=== PATIENT | male | born 1960 | race Caucasian/White ===

== ENCOUNTER 2019-03-23 05:48 | Day surgery (SDC) | payer MEDICAID, OTHER ==
[2019-03-23] MEDS ORDERED: LIDOCAINE 1% 10 ML VIAL INJ ONE (07:00)
[2019-03-23] MEDS ORDERED: DEXAMETHASONE INJ 10 MG/ML VIAL ONE (07:00)
[2019-03-23] MEDS ORDERED: PROPOFOL 200 MG/20 ML VIAL IV ONE (07:00)
[2019-03-23] MEDS ORDERED: ONDANSETRON INJ 4 MG/2 ML VIAL ONE ×2 (07:00→10:34)
[2019-03-23] MEDS ORDERED: LACTATED RINGERS 1,000 ML ONE (07:01)
[2019-03-23 09:14] VITALS: TEMP 98.9; O2SAT 95
[2019-03-23] MEDS ORDERED: BUPIVACAINE 0.5% W/EPI 30 ML VIAL INJ ONE (10:17)
[2019-03-23] MEDS ORDERED: fentaNYL CITRATE INJ 50 MCG/ML AMP ONE (10:34)
[2019-03-23] MEDS ORDERED: SUGAMMADEX SODIUM 200 MG/2 ML VIAL IV ONE (10:35)
[2019-03-23] MEDS ORDERED: MIDAZOLAM INJ 2 MG/2 ML VIAL ONE (10:35)
[2019-03-23] MEDS ORDERED: ROCURONIUM BROMIDE 10 MG/ML VIAL ONE (10:36)
[2019-03-23] MEDS: HYDROmorphone HCL INJ 2 MG/ML VIAL ONE ×2 (11:51→11:56)
--- NOTE | 2019-03-23 12:00 | OP ---
DATE OF PROCEDURE: 03/23/19 PREOPERATIVE DIAGNOSIS: 1. Symptomatic cholelithiasis. 2. Possible liver disease. POSTOPERATIVE DIAGNOSIS: 1. Symptomatic cholelithiasis. 2. Possible liver disease. PROCEDURE: 1. Laparoscopic cholecystectomy with intraoperative cholangiogram. SURGEON: Rafael Banda MD. ANESTHESIA: General and local. FINDINGS: The gallbladder showed evidence of chronic cholecystitis and gallstones. Cholangiogram showed normal anatomy throughout without filling defect. The liver itself appeared only slightly fatty. There was no evidence of cirrhosis. No biopsy was performed, but a picture was taken for interest. COMPLICATIONS: None. ESTIMATED BLOOD LOSS: None. CONDITION: Stable. PLAN: Discharge. INDICATION: As stated. ANESTHESIA: General anesthesia. PROCEDURE: The patient was prepped and draped in sterile fashion. Marcaine 0.5% with epinephrine was used all incision sites while maintaining upward traction. A joão was made into the base of the umbilicus. Veress needle was introduced. There was free flow of fluid into the peritoneal cavity which was insufflated to an appropriate level with CO2 gas. The 5 mm trocar was placed followed by the camera. There was no evidence of bleeding or bowel injury. The patient was positioned and subxiphoid and lateral ports were placed under direct visualization. The gallbladder fundus was easily identified. It was grasped and retracted superiorly and laterally. The infundibulum was grasped. The infundibular structures were dissected free. The duct and artery were clearly visualized through the triangle of Calot. A clip was placed on the proximal duct and ductotomy performed. The cholangiocatheter was introduced. The cholangiogram revealed the above normal findings. The catheter was removed. Three clips were placed on the distal duct. The duct was ligated and the artery stripped and ligated. The gallbladder was then dissected off the fossa totally and removed in the EndoCatch bag. Upon examination, there were some small stones in the gallbladder. The gallbladder fossa was examined. It remained hemostatic. The patient had mentioned possible liver biopsy. We examined the liver. The surface appeared normal. It might be slightly fatty, but no evidence of cirrhosis. We took a couple of pictures to send with the patient. At that point, the subxiphoid fascia was then closed with 0 Vicryl using the suture passer. It was airtight and non-bleeding. The remaining trocars were removed. There was no bleeding from the trocar sites. The wounds were irrigated and closed with Monocryl. Dressings were applied. The patient was awakened and taken to Recovery in stable condition to be discharged. #[id number] cc: Loren Martin MD [facility]ITALAvelino
[2019-03-23] MEDS ORDERED: traMADol HCL 50 MG TAB ONE (12:33)
[2019-03-23] MEDS ORDERED: traMADol HCL 50 MG TAB PO ONE (12:33)
--- NOTE | 2019-03-23 13:18 | RAD ---
EXAM DESCRIPTION: Fluoroscopy Up to 1Hr CLINICAL HISTORY: 59 years Male, IOC COMPARISON: None. FINDINGS/IMPRESSION: Two intraoperative cholangiogram frontal views were obtained and saved for the benefit of the interventionalists. No filling defect. Please see procedure report for full details. Fluoroscopy time: Two second at 87 KVp and 3.6 mA Fluoroscopic images: Two Electronically signed by: Rai Ordaz DO 03/23/2019 1:16 PM CDT
[2019-03-23 14:01] VITALS: BP 136/78
== END 2019-03-23 13:30 | disposition home or self-care (01) ==
LOC: AMB 05:48 → EDBD 10:15 → AMB 13:30
PROVIDERS: ATTEND Surgery
DX: K80.12 Calculus of gallbladder with acute and chronic cholecystitis without obstruction (principal); J44.9 Chronic obstructive pulmonary disease, unspecified; I25.10 Atherosclerotic heart disease of native coronary artery without angina pectoris; E78.00 Pure hypercholesterolemia, unspecified; F32.9 Major depressive disorder, single episode, unspecified; I10 Essential (primary) hypertension; G62.9 Polyneuropathy, unspecified; F17.210 Nicotine dependence, cigarettes, uncomplicated; Z88.5 Allergy status to narcotic agent; Z88.0 Allergy status to penicillin; Z88.8 Allergy status to other drugs, medicaments and biological substances; Z79.82 Long term (current) use of aspirin; Z79.02 Long term (current) use of antithrombotics/antiplatelets; Z79.899 Other long term (current) drug therapy
CPT/HCPCS: 00790; 47563; 76000; 93005; J1100; J1170; J2250; J2405; J3010; J3490; J7120